=== PATIENT | female | born 1975 | race Caucasian/White ===

== ENCOUNTER 2020-05-11 10:18 | Outpatient (CLI) | payer MEDICARE, MEDICAID, SELFPAY ==
[2020-05-11 13:12] LABS: Anion Gap 12 mmol/L (8-16); Blood Urea Nitrogen 15 mg/dL (7-17); Calcium 9.2 mg/dL (8.4-10.2); Carbon Dioxide 27 mmol/L (22-30); Chloride 100 mmol/L (98-107); Cholesterol 160 mg/dL (0-200); Estimated Glomerular Filt Rate > 60; Glucose 133 mg/dL (65-105); HDL Direct 48 mg/dL; Sodium 139 mmol/L (137-145); Triglycerides 124 mg/dL (<150)
[2020-05-11 13:17] LABS: LDL Cholesterol Direct 91 mg/dL
[2020-05-11 13:31] LABS: Creatinine Urine 15.1 mg/dL
[2020-05-11 13:40] LABS: Microalbumin Urine Random < 6.0 mg/L (0-16.7)
[2020-05-14 07:22] LABS: C-Peptide 1.13 ng/mL (0.80-3.85)
== END 2020-05-11 10:19 | disposition home or self-care (01) ==
LOC: ANHWCLAB 10:29
PROVIDERS: PCP Family Medicine; Visit Provider Internal Medicine Endocrinology, Diabetes & Metabolism
DX: E11.65 Type 2 diabetes mellitus with hyperglycemia (principal); Z79.4 Long term (current) use of insulin
CPT/HCPCS: 36415; 80048; 80061; 82043; 84443; 84681

== ENCOUNTER 2020-08-31 09:15 | Outpatient (RCR) | payer MEDICARE, MEDICAID, SELFPAY ==
[2020-06-22 12:52] VITALS: BMI 28.5
[2020-06-22 12:57] VITALS: BMI 28.5
[2020-08-22 12:42] VITALS: BMI 28.5
== END 2020-09-12 11:57 | disposition home or self-care (01) ==
LOC: ANHDMC 09:15
PROVIDERS: PCP Family Medicine; Referring Provider Internal Medicine Endocrinology, Diabetes & Metabolism; Visit Provider Internal Medicine Endocrinology, Diabetes & Metabolism
DX: E11.65 Type 2 diabetes mellitus with hyperglycemia (principal); Z71.3 Dietary counseling and surveillance; Z71.89 Other specified counseling
CPT/HCPCS: 97802; 97803; G0108

== ENCOUNTER 2020-12-05 15:30 | Outpatient (RCR) | payer MEDICARE, MEDICAID, SELFPAY ==
[2020-10-24 14:40] VITALS: BMI 27.6
== END 2020-12-05 16:50 | disposition home or self-care (01) ==
LOC: ANHDMC 15:30
PROVIDERS: PCP Family Medicine; Referring Provider Internal Medicine Endocrinology, Diabetes & Metabolism; Visit Provider Internal Medicine Endocrinology, Diabetes & Metabolism
DX: E11.65 Type 2 diabetes mellitus with hyperglycemia (principal); Z71.89 Other specified counseling; Z71.3 Dietary counseling and surveillance
CPT/HCPCS: 97802; G0108

== ENCOUNTER 2021-04-02 15:12 | Outpatient (RCR) | payer MEDICARE, MEDICAID, SELFPAY | END 2021-06-18 12:09 | disposition home or self-care (01) | LOC: ANHDMC 15:12 | PROVIDERS: PCP Family Medicine; Visit Provider Internal Medicine Endocrinology, Diabetes & Metabolism | DX: E11.65 Type 2 diabetes mellitus with hyperglycemia (principal); Z71.89 Other specified counseling | CPT/HCPCS: G0108 ==

== ENCOUNTER 2022-04-17 12:53 | Outpatient (CLI) | payer MEDICARE, MEDICAID, SELFPAY ==
[2022-04-17 14:08] LABS: Alanine Aminotransferase 21 U/L (6-35); Albumin Level 4.2 g/dL (3.5-5.1); Alkaline Phosphatase 71 U/L (38-126); Anion Gap 6 mmol/L (8-16); Aspartate Amino Transferase 20 U/L (14-36); Bilirubin,Total 0.5 mg/dL (0.2-1.3); Blood Urea Nitrogen 16 mg/dL (7-17); Calcium 8.5 mg/dL (8.4-10.2); Carbon Dioxide 32 mmol/L (22-30); Chloride 99 mmol/L (98-107); Cholesterol 139 mg/dL (0-200); Estimated Glomerular Filt Rate > 60; Glucose 109 mg/dL (65-110); HDL Direct 43 mg/dL; Potassium 4.1 mmol/L (3.4-5.0); Sodium 137 mmol/L (137-145); Triglycerides 69 mg/dL (<150)
[2022-04-17 14:19] LABS: LDL Cholesterol Direct 62 mg/dL
[2022-04-17 14:37] LABS: Thyroid Stimulating Hormone 0.808 uIU/mL (0.465-4.680)
[2022-04-17 14:38] LABS: Creatinine Urine 23.5 mg/dL
[2022-04-17 14:43] LABS: MALB Creatinine Ratio 241.3 mg/g (0-30); Microalbumin Urine Random 56.7 mg/L (0-16.7)
== END 2022-04-17 12:54 | disposition home or self-care (01) ==
PROVIDERS: PCP Family Medicine; Visit Provider Internal Medicine Endocrinology, Diabetes & Metabolism
DX: E11.65 Type 2 diabetes mellitus with hyperglycemia (principal); Z79.4 Long term (current) use of insulin; Z46.81 Encounter for fitting and adjustment of insulin pump; E78.5 Hyperlipidemia, unspecified
CPT/HCPCS: 36415; 80053; 80061; 82043; 82607; 84443

== ENCOUNTER 2024-03-08 12:41 | Outpatient (CLI) | payer MEDICARE, SELFPAY ==
--- NOTE | ~2024-03-08 | US_ITS ---
EXAMINATION: US thyroid DATE: 03/08/2024 13:10 INDICATION: Dysphagia TECHNIQUE: Multiple ultrasound images of the thyroid were obtained. COMPARISON: None. FINDINGS: The right thyroid lobe measures 4.4 x 1.0 x 1.8 cm. The left thyroid lobe measures 4.7 x 0.7 x 1.4 cm. The remainder of the isthmus measures 0.18cm in anterior to posterior dimension. Within the isthmus of the thyroid gland, to the right of midline is a 2.3 x 1.4 x 1.4 mm nodule: Composition - cystic Echogenicity -hypoechoic Shape - wider than tall Margin - smooth Echogenic foci - none. = TR2 not suspicious. There is otherwise normal echotexture and echogenicity throughout the remainder of the thyroid gland. No additional discrete nodules identified. Normal vascular flow is present. IMPRESSION: TR2 nodule in the isthmus of the thyroid gland measuring 2.3 mm in greatest dimension. This nodule is not sonographically suspicious and no FNA is recommended Follow-up may be performed. Reviewed, dictated and finalized at location A. [employer] IMPRESSION: TR2 nodule in the isthmus of the thyroid gland measuring 2.3 mm in greatest dim ension. This nodule is not sonographically suspicious and no FNA is recommended Follow-up may be performed.
== END 2024-03-08 12:42 | disposition home or self-care (01) ==
PROVIDERS: PCP Family Medicine; Visit Provider Nurse Practitioner Family
DX: E04.1 Nontoxic single thyroid nodule (principal)
CPT/HCPCS: 76536